=== PATIENT | female | born 1995 | race Caucasian/White ===

== ENCOUNTER 2024-07-18 13:26 | Emergency (ER) | payer MEDICAID, OTHER ==
[~2024-07-18] VITALS: Ht 170.2 cm; Wt 54.4 kg
[2024-07-18] MEDS ORDERED: HYDROMORPHONE 1 MG/1 ML DISP.SYRIN ONE ×2 (15:36→16:46)
[2024-07-18] MEDS ORDERED: ONDANSETRON 4 MG/2 ML VIAL ONE (15:36)
[2024-07-18 15:45] LABS: BASOPHILS % (AUTO) 0.3 % (0.0-2.0); EOSINOPHILS # (AUTO) 0.3 K/uL (0.0-0.7); EOSINOPHILS % (AUTO) 3.4 % (0.0-7.0); HEMATOCRIT 36.2 % (31.2-41.9); HEMOGLOBIN 12.1 g/dL (10.9-14.3); LYMPHOCYTES # (AUTO) 1.7 K/uL (0.8-4.8); LYMPHOCYTES % (AUTO) 16.8 % (20.5-51.5); MEAN CORPUSCULAR HGB CONC 33 g/dL (32.3-35.6); MEAN CORPUSCULAR VOLUME 93.1 fL (75.5-95.3); MONOCYTES # (AUTO) 0.8 K/uL (0.1-1.30); NEUTROPHILS # (AUTO) 7.1 K/uL (1.8-8.9); NEUTROPHILS % (AUTO) 71.5 % (38.5-71.5); PLATELET COUNT (AUTO) 251 K/uL (179-408); RED BLOOD CELL COUNT(AUTO) 3.89 MIL/uL (3.63-4.92); RED CELL DISTRIBUTION WIDTH 13.2 % (12.3-17.7); WHITE BLOOD COUNT (AUTO) 9.9 K/uL (3.8-11.8)
[2024-07-18 15:48] LABS: DIFFERENTIAL COMMENT 1
[2024-07-18] MEDS: ONDANSETRON 4 MG/2 ML VIAL IV ONE (15:52)
[2024-07-18] MEDS: HYDROMORPHONE 1 MG/1 ML DISP.SYRIN IV ONE ×2 (15:52→16:53)
[2024-07-18] MEDS: IV NS 1000 ML 1,000 ML IV ONE (15:52)
[2024-07-18 15:57] LABS: CALCIUM 9.2 mg/dL (8.5-10.1); CREATININE 0.6 mg/dL (0.6-1.3); POTASSIUM 3.8 mmol/L (3.5-5.1)
[2024-07-18] MEDS ORDERED: KETOROLAC TROMETHAMINE 30 MG INJ ONE (16:45)
[2024-07-18] MEDS ORDERED: hydrOXYzine HCL 25 MG TABLET ONE (16:46)
[2024-07-18] MEDS: KETOROLAC TROMETHAMINE 30 MG INJ IVP ONE (16:53)
[2024-07-18] MEDS: hydrOXYzine HCL 25 MG TABLET PO ONE (16:53)
[2024-07-18 17:00] LABS: *MONOTEST NEGATIVE (NEGATIVE)
[2024-07-18 17:05] LABS: ALBUMIN 3.9 g/dL (3.4-5.0); BILIRUBIN,DIRECT 0.2 mg/dL (0.0-0.2); BILIRUBIN,TOTAL 0.4 mg/dL (0.2-1.0); TOTAL PROTEIN, SERUM 7.2 g/dL (6.4-8.2)
[2024-07-18] MEDS ORDERED: CEFTRIAXONE /D5W 50ML IVPB **ER PYXIS IV ONE (18:13)
[2024-07-18] MEDS ORDERED: METRONIDAZOLE 500 MG/NS 100ML 100 ML IV ONE (18:13)
[2024-07-18] MEDS ORDERED: DEXAMETHASONE SOD PHOSPHATE 4 MG INJ ONE (18:13)
[2024-07-18] MEDS: CEFTRIAXONE 1 G in IV DEXTROSE 5% 50 ML IV ONE (18:21)
[2024-07-18] MEDS: DEXAMETHASONE SOD PHOSPHATE 4 MG INJ IV ONE (18:21)
[2024-07-18] MEDS ORDERED: HYDR-3980 PO (18:49)
[2024-07-18] MEDS ORDERED: METR500T PO (18:49)
[2024-07-18] MEDS ORDERED: CEFD300C3 PO (18:49)
[2024-07-18] MEDS: METRONIDAZOLE 500 MG/NS 100 ML PIGGYBACK IV ONE (19:11)
[2024-07-18 19:44] VITALS: BP 120/71; O2SAT 99
== END 2024-07-18 19:45 | disposition home or self-care (01) ==
LOC: ER 13:26
DX: J03.90 Acute tonsillitis, unspecified (principal)
CPT/HCPCS: 99284; 96365; 96375; 96361; 96367; 80076; 80048; 85025; 86308; 86403; 87070; 36415; 96376; J0696; J1100; J1885; J3490; J2405; J1171 ×2; J7040; A4606; A4663